=== PATIENT | male | born 1980 | race Two or more races ===

== ENCOUNTER 2017-09-13 10:58 | Emergency (ER) | payer OTHER ==
[~2017-09-13] VITALS: Ht 177.8 cm; Wt 98.0 kg
[2017-09-13 11:55] VITALS: BP 118/62
[2017-09-13] MEDS ORDERED: KETOROLAC TROMETH 60MG/2ML VIAL IM ONE (13:45)
== END 2017-09-13 13:49 | disposition home or self-care (01) ==
LOC: ER 10:58
DX: S50.02XA Contusion of left elbow, initial encounter (principal); S80.02XA Contusion of left knee, initial encounter; V43.52XA Car driver injured in collision with other type car in traffic accident, initial encounter; Y93.89 Activity, other specified; Y92.89 Other specified places as the place of occurrence of the external cause; Y99.8 Other external cause status
CPT/HCPCS: 73030